=== PATIENT | female | born 1945 | race Caucasian/White ===

== ENCOUNTER → 2016-09-19 | Outpatient (CLI) | payer BC ==
[2016-09-19 12:50] LABS: ALT/SGPT 25 U/L (12-78); AST/SGOT 20 U/L (15-37); BLOOD UREA NITROGEN 19 mg/dl (7-18); BUN/CREATININE RATIO 20.3 (10-20); CARBON DIOXIDE 29 mmol/L (21-32); CHLORIDE 105 mmol/L (98-107); CREATININE 0.96 mg/dl (0.60-1.20); GLUCOSE 89 mg/dl (70-99); POTASSIUM 4.1 mmol/L (3.5-5.1); SODIUM 141 mmol/L (136-145)
[2016-09-19 12:54] LABS: ALB/GLOB RATIO 1.2 (0.9-2); ALKALINE PHOSPHATASE 63 U/L (45-117); CHOLESTEROL 208 mg/dl (0-200); CHOLESTEROL/HDL RATIO 2.2; HDL CHOLESTEROL 94 mg/dl; LDL CHOLESTEROL CALCULATED 98 mg/dl; TRIGLYCERIDES 82 mg/dl (0-150); VERY LOW DENSITY LIPOPROT CALC 16 mg/dl
== END | disposition home or self-care (01) ==
LOC: C.LABPVFM 07:32
PROVIDERS: ATTEND Family Medicine
DX: E78.5 Hyperlipidemia, unspecified (principal)

== ENCOUNTER → 2016-09-27 | Outpatient (CLI) | payer BC ==
[2016-09-27 17:54] LABS: MAGNESIUM 1.9 mg/dl (1.8-2.4)
--- NOTE | 2016-10-17 09:57 | CODING QUERY MEDICAL NECESSITY ---
SUPPORTING DIAGNOSIS NEEDED A supporting diagnosis is required for the test/procedure performed on this patient in order for us to be reimbursed by the patient's insurance. Please provide a supporting diagnosis for the following test/procedure listed below next to the test name along with your signature. *If there is no additional diagnosis for this patient that would support the following test/procedure please document that below next to the test/procedure. Test(s)/Procedure(s) that require a supporting diagnosis: DOS 09/27 * Vitamin B12 DIAGNOSIS: Provider Signature: Date: Thank you Rhonda Ferrara Health Information Management Once completed, please kindly fax back to [phone] For questions please call [phone]
== END | disposition home or self-care (01) ==
LOC: C.LABPVFM 11:30
PROVIDERS: ATTEND Family Medicine
DX: E55.9 Vitamin D deficiency, unspecified (principal); E78.5 Hyperlipidemia, unspecified; M79.606 Pain in leg, unspecified; M79.1 Myalgia; D64.9 Anemia, unspecified

== ENCOUNTER → 2016-12-11 | Outpatient (CLI) | payer BC ==
--- NOTE | 2016-12-11 17:08 | MAMMOGRAPHY REPORT ---
BILATERAL DIGITAL SCREENING MAMMOGRAM WITH CAD: 12/11/2016 CLINICAL HISTORY: Routine screening. Patient has no complaints. TECHNIQUE: Bilateral CC and MLO views were obtained. Current study was also evaluated with a Comput er Aided Detection (CAD) system. COMPARISON: Comparison is made to exams dated: 12/06/2015 mammogram, 12/02/2014 mammogram, 10/25/2013 mammogram, 10/19/2012 mammogram, 10/08/2010 mammogram, and 09/11/2009 mammogram - [facility]. BREAST COMPOSITION: There are scattered areas of fibroglandular density in both breasts. FINDINGS: The parenchymal pattern is unchanged. No developing mass, architectural distortion or clu ster of suspicious microcalcifications is seen in either breast. IMPRESSION: ACR BI-RADS CATEGORY 2: BENIGN There is no mammographic evidence of malignancy. A 1 year screening mammogram is recommended. The p atient will receive written notification of the results. Approximately 10% of breast cancers are not detected with mammography. A negative mammographic repor t should not delay biopsy if a clinically suggestive mass is present. Emily Lockwood M.D. ay/:12/11/2016 15:54:29 Sap Technical Architect: Krysta Simmons, [facility] letter sent: Normal 1/2 BI-RADS Code: ACR BI-RADS Category 2: Benign
== END | disposition home or self-care (01) ==
LOC: C.MAMM 14:45
PROVIDERS: ATTEND Family Medicine
DX: Z12.31 Encounter for screening mammogram for malignant neoplasm of breast (principal)

== ENCOUNTER → 2017-01-24 | Outpatient (CLI) | payer BC ==
--- NOTE | 2017-01-24 12:31 | DIAGNOSTIC IMAGING REPORT ---
CERVICAL SPINE 5 VIEWS CLINICAL HISTORY: Cervicalgia. Chronic neck pain. FINDINGS: AP, lateral, bilateral oblique, and odontoid views of the cervical spine are compared to the study dated 01/13/2014. The skeletal structures are osteopenic. There is no radiographic evidence of fracture or malalignment. The odontoid process and lateral masses are intact on the open-mouth view. The spinolaminar line is preserved. Vertebral body height is maintained throughout the cervical spine. There is straightening of the cervical lordosis with reversal centered at C4-C5. There is minimal anterolisthesis at C4-C5. Alignment is otherwise maintained. Small anterior osteophytes are seen at C5-C6. The spinous processes appear intact. Neural foraminal stenosis is suggested on the right at C3-C4 through C5-C6. No significant left-sided neural foraminal narrowing is seen. There is moderate degenerative disc space narrowing at C5-C6 with associated endplate sclerosis. Milder disc space narrowing is seen at C4-C5. Small posterior disc-osteophyte complexes seen at C5-C6 and C6-C7 may contribute to mild acquired compromise of the central canal. The prevertebral soft tissues are within normal limits. The imaged apical lung parenchyma appears clear. IMPRESSION: 1. No acute bony abnormality is identified in the cervical spine. 2. Osteopenia and spondylotic change as above. This is similar in appearance to the 01/13/2014 examination. Dictated: 01/24/2017 11:15 AM Transcribed: 01/24/2017 12:31 PM [email or web address] Electronically signed by: Melo Gonzalez M.D. 01/24/2017 12:34 PM Dictated Date/Time: 01/24/2017 11:15 AM
== END | disposition home or self-care (01) ==
LOC: C.RADPV 10:31
PROVIDERS: ATTEND Family Medicine
DX: M54.2 Cervicalgia (principal); M85.88 Other specified disorders of bone density and structure, other site; M47.812 Spondylosis without myelopathy or radiculopathy, cervical region

== ENCOUNTER → 2017-05-28 | Outpatient (CLI) | payer BC ==
[2017-05-28 12:26] LABS: BASO % 0.7 %; BASO ABS # 0.03 K/uL (0-0.2); COMPLETE YES; EOS % 1.8 %; HEMATOCRIT 39.5 % (37-47); LYMPH % 43.1 %; LYMPH ABS # 1.88 K/uL (1.2-3.4); MEAN CORPUSCULAR HEMOGLOBIN 29.7 pg (25-34); MEAN CORPUSCULAR HGB CONC 32.7 g/dl (32-36); MEAN PLATELET VOLUME 10.6 fL (7.4-10.4); MONO % 7.8 %; NEUT % 46.6 %; PLATELET COUNT 216 K/uL (130-400); RED BLOOD COUNT 4.34 M/uL (4.2-5.4); WHITE BLOOD COUNT 4.36 K/uL (4.8-10.8)
[2017-05-28 13:15] LABS: LYME DISEASE AB IGG NEG (NEG); LYME DISEASE AB IGM NEG (NEG)
== END | disposition home or self-care (01) ==
LOC: C.LABPVFM 08:42
PROVIDERS: ATTEND Family Medicine Adult Medicine
DX: R53.83 Other fatigue (principal); M25.519 Pain in unspecified shoulder

== ENCOUNTER → 2017-05-30 | Outpatient (CLI) | payer BC | END | disposition home or self-care (01) | LOC: C.LABPVFM 14:01 | PROVIDERS: ATTEND Family Medicine Adult Medicine | DX: K59.00 Constipation, unspecified (principal) ==

== ENCOUNTER → 2017-07-08 | Outpatient (CLI) | payer BC ==
--- NOTE | 2017-07-08 14:45 | DIAGNOSTIC IMAGING REPORT ---
VIDEO SWALLOW HISTORY: R13.10 Dysphagiapt coughs with every meal.[id number] TECHNIQUE: Video fluoroscopic evaluation of swallowing was performed in the AP and lateral projections by the speech pathology staff. The patient is fed nectar-thick and thin liquid barium, a barium coated wafer, and barium pudding. FLUOROSCOPY TIME: 1.7 minutes. NUMBER OF FLUOROSCOPY IMAGES: 0 COMPARISON STUDY: None. FINDINGS: There is normal hyoid excursion and epiglottic deflection. No significant penetration or aspiration identified. Swallowing function is within normal limits. IMPRESSION: 1. No aspiration identified. 2. Please see the speech pathologist report for detailed findings and recommendations. Electronically signed by: Stefan Bo M.D. 07/08/2017 2:43 PM Dictated Date/Time: 07/08/2017 12:21 PM
--- NOTE | 2017-07-09 13:24 | SWALLOWING EVALUATION ---
HISTORY: This 72 year old woman was referred for a video swallow study at [facility] in order to rule out aspiration and identify the safest consistencies for optimal oral intake. Patient is c/o globus sensation and episodes of coughing with meals. PMH is significant for a small hiatal hernia and is eating treated for reflux. Current diet is described as regular. PROCEDURE: The patient was seen in the Radiology Department of [facility] for the [facility]. Cursory examination of the oral cavity revealed upper and lower plates. Movement of the articulators was wnl. Speech was clear. The patient was seated on a stool and was viewed in both the Anterior-Posterior (A-P) and Lateral planes. Volitional phonation exercises completed in the A-P plane revealed bilateral vocal fold movement and vocal intensity within functional limits. The patient was seated on a stool and was viewed in both the Anterior-Posterior (A-P) and Lateral planes. Volitional phonation exercises completed in the A-P plane revealed bilateral vocal fold movement and vocal intensity within functional limits. In the lateral plane, the patient was given the following boluses: 1 tsp. thin liquid barium x 2, single swallow thin liquid barium self-presented from a cup, sequential swallows of thin liquid barium self-presented from a straw, 1 tsp. nectar-thick liquid barium, single swallow nectar-thick liquid barium self-presented from a cup, 1 tsp. barium pudding, and 1 club cracker coated in barium pudding. The patient was then repositioned into the A-P plane and given the following boluses: 1 tsp. nectar thick barium and 1 tsp. barium pudding. RESULTS: Oral Stage: Lip closure was adequate. The patient was able to maintain a cohesive liquid bolus in the oral cavity without any escape during the liquid bolus hold task. Mastication was timely and efficient. Lingual motion for bolus transport was slow. There was retention lining the tongue and palate after the initial swallow. The initiation of the pharyngeal swallow occurred when the bolus head reached the pyriforms. Pharyngeal Stage: Soft palate elevation was complete. Laryngeal elevation revealed partial superior movement of the thyroid cartilage and partial approximation of the arytenoids to the epiglottic base. Anterior hyoid excursion and epiglottic deflection were partially reduced. Laryngeal vestibular closure was in-complete, with a trace column of contrast being located in the vestibule at the height of the swallow. The pharyngeal stripping wave was present yet complete. Pharyngeal contraction was complete. There was complete distention and duration of the opening to the pharyngoesophageal segment (PES). Tongue base retraction was reduced, with a narrow column of contrast located between the tongue base and pharyngeal wall during the swallow. There was mild retention located in the valleculae after the swallow. There was no evidence of aspiration for this study. Minimal laryngeal penetration evidenced along with mild vallecular retention cleared with a second effortful swallow. No other difficulty identified. Esophageal stage: There was distal esophageal retention. This is suggestive of esophageal dysmotility. Patient also has a hiatal hernia. SUMMARY/RECOMMENDATIONS: This patient presents with mild avni-pharyngeal swallowing mechanics. She presents with s/s of esophageal dysphagia. The following is recommended: 1. Regular diet, "slippery" and thin liquids. 2. Aspiration and GERD precautions. No Straws. Fully upright for meals and for 30 minutes after meals. Do not lay flat. 3. Safe swallow strategies: Avoid foods that are dry, thick, pasty, or doughy. Use of condiments such as gravy to assist with making foods moist. Rest breaks while eating. Alternate solids and liquids. Small frequent meals. 4. Follow up with PCP as needed. Consider a GI consult with any worsening of esophageal dysphagia. A summary of the results and recommendations was discussed with the patient immediately following the study with verbal understanding. The patient was also provided with verbal education regarding a "slippery" diet for improved comfort while eating (avoiding foods that are dry, thick, pasty, or doughy) as needed. She verbalized understanding. Thank you for referral of this patient. Please contact me at if any additional information is needed.
== END | disposition home or self-care (01) ==
LOC: C.RAD 11:16
PROVIDERS: ATTEND Family Medicine
DX: R13.10 Dysphagia, unspecified (principal)

== ENCOUNTER → 2017-10-10 | Outpatient (CLI) | payer BC ==
[2017-10-10 12:23] LABS: HEMATOCRIT 40.4 % (37-47); HEMOGLOBIN 13.6 g/dL (12.0-16.0); MEAN CELL VOLUME 89.6 fL (80-100); MEAN CORPUSCULAR HEMOGLOBIN 30.2 pg (25-34); MEAN CORPUSCULAR HGB CONC 33.7 g/dl (32-36); MEAN PLATELET VOLUME 10.7 fL (7.4-10.4); PLATELET COUNT 207 K/uL (130-400); RED CELL DISTRIBUTION WIDTH CV 12.9 % (11.5-14.5); RED CELL DISTRIBUTION WIDTH SD 42.1 fL (36.4-46.3); WHITE BLOOD COUNT 4.81 K/uL (4.8-10.8)
[2017-10-10 12:45] LABS: ALBUMIN 4.2 gm/dl (3.4-5.0); ALT/SGPT 26 U/L (12-78); BLOOD UREA NITROGEN 17 mg/dl (7-18); CALCIUM 9.5 mg/dl (8.5-10.1); CARBON DIOXIDE 28 mmol/L (21-32); CHOLESTEROL 204 mg/dl (0-200); CREATININE 1.03 mg/dl (0.60-1.20); GLUCOSE 84 mg/dl (70-99); POTASSIUM 4.2 mmol/L (3.5-5.1); SODIUM 138 mmol/L (136-145)
[2017-10-10 12:47] LABS: HEMOGLOBIN A1C 5.4 % (4.5-5.6)
[2017-10-10 12:48] LABS: ALKALINE PHOSPHATASE 62 U/L (45-117); AST/SGOT 24 U/L (15-37); LDL CHOLESTEROL CALCULATED 107 mg/dl; TOTAL PROTEIN 7.7 gm/dl (6.4-8.2)
== END | disposition home or self-care (01) ==
LOC: C.LABPVFM 07:56
PROVIDERS: ATTEND Family Medicine
DX: Z86.39 Personal history of other endocrine, nutritional and metabolic disease (principal)

== ENCOUNTER → 2017-11-11 | Outpatient (CLI) | payer BC | END | disposition home or self-care (01) | LOC: C.MAMM 12:51 | PROVIDERS: ATTEND Family Medicine | DX: M85.89 Other specified disorders of bone density and structure, multiple sites (principal) ==

== ENCOUNTER → 2017-12-17 | Outpatient (CLI) | payer BC ==
--- NOTE | 2017-12-17 15:47 | MAMMOGRAPHY REPORT ---
BILATERAL DIGITAL SCREENING MAMMOGRAM TOMOSYNTHESIS WITH CAD: 12/17/2017 CLINICAL HISTORY: Routine screening. Patient has no complaints. TECHNIQUE: Breast tomosynthesis in addition to standard 2D mammography was performed. Current study was also evaluated with a Computer Aided Detection (CAD) system. COMPARISON: Comparison is made to exams dated: 12/11/2016 mammogram, 12/06/2015 mammogram, 12/02/2014 m ammogram, 10/25/2013 mammogram, 10/19/2012 mammogram, and 10/08/2010 mammogram - [facility]ter. BREAST COMPOSITION: There are scattered areas of fibroglandular density in both breasts. FINDINGS: The parenchymal pattern is unchanged. No developing mass, architectural distortion or clus ter of suspicious microcalcifications is seen in either breast. IMPRESSION: ACR BI-RADS CATEGORY 2: BENIGN There is no mammographic evidence of malignancy. A 1 year screening mammogram is recommended. The pa tient will receive written notification of the results. Approximately 10% of breast cancers are not detected with mammography. A negative mammographic report should not delay biopsy if a clinically suggestive mass is present. Emily Lockwood M.D. ay/:12/17/2017 14:00:13 Clinical Review Nurse: Krysta Simmons, [facility] letter sent: Normal 1/2 BI-RADS Code: ACR BI-RADS Category 2: Benign
== END | disposition home or self-care (01) ==
LOC: C.MAMM 13:09
PROVIDERS: ATTEND Family Medicine
DX: Z12.31 Encounter for screening mammogram for malignant neoplasm of breast (principal)

== ENCOUNTER → 2018-04-13 | Outpatient (CLI) | payer BC ==
[2018-04-13 12:26] LABS: HEMATOCRIT 40.7 % (37-47); HEMOGLOBIN 13.4 g/dL (12.0-16.0); MEAN CELL VOLUME 91.3 fL (80-100); MEAN CORPUSCULAR HGB CONC 32.9 g/dl (32-36); MEAN PLATELET VOLUME 10.9 fL (7.4-10.4); PLATELET COUNT 178 K/uL (130-400); RED CELL DISTRIBUTION WIDTH CV 12.9 % (11.5-14.5); RED CELL DISTRIBUTION WIDTH SD 42.8 fL (36.4-46.3); WHITE BLOOD COUNT 4.11 K/uL (4.8-10.8)
[2018-04-13 13:09] LABS: ALBUMIN 3.6 gm/dl (3.4-5.0); ALKALINE PHOSPHATASE 58 U/L (45-117); ALT/SGPT 28 U/L (12-78); AST/SGOT 23 U/L (15-37); BLOOD UREA NITROGEN 17 mg/dl (7-18); CALCIUM 8.5 mg/dl (8.5-10.1); CARBON DIOXIDE 27 mmol/L (21-32); CHOLESTEROL 192 mg/dl (0-200); CREATININE 0.94 mg/dl (0.60-1.20); GLUCOSE 88 mg/dl (70-99); LDL CHOLESTEROL CALCULATED 92 mg/dl; POTASSIUM 4.2 mmol/L (3.5-5.1); SODIUM 139 mmol/L (136-145); TOTAL PROTEIN 7.1 gm/dl (6.4-8.2)
[2018-04-13 13:27] LABS: HEMOGLOBIN A1C 5.5 % (4.5-5.6)
== END | disposition home or self-care (01) ==
LOC: C.LABPVFM 07:47
PROVIDERS: ATTEND Family Medicine
DX: G25.81 Restless legs syndrome (principal)

== ENCOUNTER 2023-07-04 06:42 | Observation (INO) ==
--- NOTE | 2023-05-23 15:10 | PAT Medication Instructions ---
Medication Instructions Date of Service May 23, 2023 Home Medications Medication Instructions Recorded coenzyme Q10 10 mg capsule 10 mg PO DAILY #30 caps 04/15/19 clonazepam 0.5 mg tablet 0.25 - 0.5 mg PO HS PRN sleep #20 03/08/22 tabs cyanocobalamin (vitamin B-12) 2,500 mcg PO DAILY #30 tabs 03/18/22 2,500 mcg tablet gabapentin 300 mg capsule 300 mg PO .COMPLEX #450 caps 12/26/22 bupropion HCl 150 mg tablet,12 hr 150 mg PO BID #60 ea 04/29/23 sustained-release (Wellbutrin SR) celecoxib 200 mg capsule (Celebrex) 200 mg PO BID PRN pain #180 caps 05/13/23 multivitamin (Daily Multi-Vitamin tablet) 1 tab PO DAILY biotin 10 mg tablet 10 mg PO DAILY coenzyme Q10 10 mg capsule 10 mg PO DAILY omega-3 fatty acids 1,000 mg capsule (Fish Oil Concentrate) 1,000 mg PO DAILY calcium carbonate 600 mg calcium (1,500 mg) tablet (Calcium) 600 mg PO DAILY clonazepam 0.5 mg tablet 0.25 - 0.5 mg PO HS PRN cyanocobalamin (vitamin B-12) 2,500 mcg tablet 2,500 mcg PO DAILY gabapentin 300 mg capsule 300 mg PO .COMPLEX bupropion HCl 150 mg tablet,12 hr sustained-release (Wellbutrin SR) 150 mg PO BID celecoxib 200 mg capsule (Celebrex) 200 mg PO BID PRN duloxetine 60 mg capsule,delayed release 60 mg PO HS omeprazole 20 mg capsule,delayed release 20 mg PO HS raloxifene 60 mg tablet 60 mg PO QAM simvastatin 40 mg tablet 40 mg PO HS Continue as directed gabapentin 300 mg capsule 300 mg PO .COMPLEX ASK your surgeon for instructions celecoxib 200 mg capsule (Celebrex) 200 mg PO BID PRN ASK your prescriber and surgeon raloxifene 60 mg tablet 60 mg PO QAM STOP taking 2 weeks before surgery (or as soon as possible if surgery is within 2 weeks) biotin 10 mg tablet 10 mg PO DAILY coenzyme Q10 10 mg capsule 10 mg PO DAILY omega-3 fatty acids 1,000 mg capsule (Fish Oil Concentrate) 1,000 mg PO DAILY DO NOT take the morning of surgery multivitamin (Daily Multi-Vitamin tablet) 1 tab PO DAILY calcium carbonate 600 mg calcium (1,500 mg) tablet (Calcium) 600 mg PO DAILY cyanocobalamin (vitamin B-12) 2,500 mcg tablet 2,500 mcg PO DAILY Take morning of surgery With a small sip of water, OTHERWISE NOTHING TO EAT OR DRINK AFTER MIDNIGHT: bupropion HCl 150 mg tablet,12 hr sustained-release (Wellbutrin SR) 150 mg PO BID Take evening before surgery clonazepam 0.5 mg tablet 0.25 - 0.5 mg PO HS PRN(if needed) bupropion HCl 150 mg tablet,12 hr sustained-release (Wellbutrin SR) 150 mg PO BID duloxetine 60 mg capsule,delayed release 60 mg PO HS omeprazole 20 mg capsule,delayed release 20 mg PO HS simvastatin 40 mg tablet 40 mg PO HS Other Notes If you have any questions please call us at [phone] or [phone] or [phone] or [phone]
--- NOTE | 2023-05-29 12:06 | Anesthesiology Consultation ---
Date of Service May 29, 2023 Assessment & Plan (1) Encounter for pre-operative examination: Chart Review Chart Review: Acceptable Risk for Surgery (pending routine PCP and neuro appts ) and Patient NOT seen in Pre Admission Testing - Awaiting routine PCP appt ([place]) 06/30/23 - Awaiting routine neuro appt 05/29/23 ([place]) - Pt is NOT an OPJ candidate due to age Per PAT appt on 05/29/23, no recent illness/disease exposures, illness related symptoms, or recent illness/disease positive tests. Will leave to surgeon's discretion if preop Covid testing needed Teaching & Discussion Pre-Anesthesia Teaching/Discussion Notes: Instructed NPO after midnight before surgery,except medications with 15 cc of water. Medication instructions provided according to the [facility] guidelines. History Surgery Operation Date: 07/04/23 07:00 Proposed Procedures p Right Total Knee Arthroplasty - Willie Ray MD Height/Weight Height: 5 ft 1 in Weight: 57.9 kg Allergies Allergy/AdvReac Type Severity Reaction Status Date / Time No Known Allergies Allergy Verified 05/28/23 10:40 Medications Home Medications Medication Instructions Recorded Confirmed Last Taken multivitamin (Daily Multi-Vitamin 1 tab PO DAILY 03/05/19 05/28/23 Unknown tablet) biotin 10 mg tablet 10 mg PO DAILY 04/15/19 05/28/23 Unknown coenzyme Q10 10 mg capsule 10 mg PO DAILY #30 caps 04/15/19 05/28/23 Unknown omega-3 fatty acids 1,000 mg 1,000 mg PO DAILY 04/15/19 05/28/23 Unknown capsule (Fish Oil Concentrate) calcium carbonate 600 mg calcium 600 mg PO DAILY 01/11/21 05/28/23 Unknown (1,500 mg) tablet (Calcium) clonazepam 0.5 mg tablet 0.25 - 0.5 mg PO HS PRN sleep #20 03/08/22 05/28/23 Unknown tabs cyanocobalamin (vitamin B-12) 2,500 mcg PO DAILY #30 tabs 03/18/22 05/28/23 Unknown 2,500 mcg tablet gabapentin 300 mg capsule 300 mg PO .COMPLEX #450 caps 12/26/22 05/28/23 Unknown bupropion HCl 150 mg tablet,12 hr 150 mg PO BID #60 ea 04/29/23 05/28/23 Unknown sustained-release (Wellbutrin SR) celecoxib 200 mg capsule (Celebrex) 200 mg PO BID PRN pain #180 caps 05/13/23 05/28/23 Unknown duloxetine 60 mg capsule,delayed 60 mg PO HS 05/23/23 05/28/23 Unknown release omeprazole 20 mg capsule,delayed 20 mg PO HS 05/23/23 05/28/23 Unknown release raloxifene 60 mg tablet 60 mg PO QAM 05/23/23 05/28/23 Unknown simvastatin 40 mg tablet 40 mg PO HS #90 tabs 05/27/23 05/28/23 Unknown Past Medical History Medical History Chronic low back pain Chronic reflux esophagitis Well controlled and stable Depression Fibromyalgia Stable Hiatal hernia Hyperlipidemia Idiopathic polyneuropathy Follows with neuro Osteopenia Restless leg syndrome Sacroiliac joint pain Does get epidural injections Exercise / Class Metabolic Activity II 4-5 Yardwork/Stairs/Walk up hill (one flight of stairs - no chest pain or SOB ) Past Family History Family History Mother Congestive heart failure (CHF) Father Stroke Other Heart disease Denies family history of Ovarian cancer Prostate cancer Myocardial infarction Breast cancer Colorectal cancer Past Surgical History Surgical History History of esophagogastroduodenoscopy (EGD) Hx of colonoscopy Hx of tonsillectomy S/P excision of ganglion cyst Past Anesthesia History No Hx of Anesthesia Complications and No Family Hx of Anesthesia Complications History of PONV No Hx of PONV and No Hx of Motion Sickness Social History Smoking Status: Former smoker Do You Dip or Chew Tobacco: No Smoking End Date: quit age 32 Hx Alcohol Use: Yes Alcohol type: beer alcohol intake frequency: a few times a week Hx Substance Use: No substance use type: does not use Review of Systems Minimal snoring- no hx of sleep study Patient denies chest pain, shortness of breath, dyspnea on exertion, cough, wheezing, palpitations. No hx of seizures, stroke, MD. No hx of blood clots or blood transfusions Physical Exam Vital Signs VITALS BP 117/73 P 74 TEMP 97.7 SP02 97% RESP 16 Constitutional no acute distress ENMT Mouth: no TMJ clicking Thyromental Distance: > or= 3.5 Finger Breadths (3.5) Mallampati Class: I Top front teeth capped Crowns to molars Permanent bridges to side teeth Neck neck extension not limited Respiratory normal respiratory effort; no respiratory distress Auscultation: lungs clear to auscultation bilaterally; no wheezes Cardiovascular Rate/Rhythm: regular rate and regular rhythm Heart Sounds: no murmur Vessels: no carotid bruit Musculoskeletal Spine: no pain with cervical ROM Extremities: extremities normal to inspection Psychiatric Orientation: alert Lab Results Anesthesia Preop Results Results Anesthesia Widget: WBC 6.10 K/ul (4.8-10.8) 05/29/23 Hgb 12.0 g/dl (12.0-16.0) 05/29/23 Hct 35.2 % (37.0-47.0) L 05/29/23 Plt 214 K/uL (130-400) 05/29/23 Na 135 mmol/L (136-145) L 05/29/23 K 4.3 mmol/L (3.5-5.1) 05/29/23 Cl 104 mmol/L (98-107) 05/29/23 CO2 28 mmol/L (21-32) 05/29/23 BUN 19 mg/dl (6-23) 05/29/23 Creat 0.87 mg/dl (0.6-1.2) 05/29/23 Glucose Level 95 mg/dl (70-99(Fasting)) 05/29/23 PT 11.4 Seconds (9.0-12.0) 05/29/23 PTT 26.5 Seconds (21.0-31.0) 05/29/23 INR 1.0 (0.9-1.1) 05/29/23 Blood Type B Negative 05/29/23 Antibody Screen NEGATIVE 05/29/23 Testing Electrocardiogram Date: 05/29/23 Findings: + NSR @ (71bpm ) Normal EKG per cardio Chest X-Ray Date: 05/29/23 Findings: + NAD
--- NOTE | 2023-06-27 13:33 | History & Physical Report ---
Date of Service June 27, 2023 Assessment & Plan (1) Right knee DJD: 78-year-old female with advanced right knee lateral compartment DJD. She has failed conservative measures would like to have her right knee replaced. Plan: We will plan taken to the operating right total knee replacement for the risks Mente this procedure explained the patient include but not limited to DVT PE infection neurological injury vascular bleeding palm pain limb range of motion sepsis fairly of symptoms incomplete relief of symptoms need for further surgery in future exceptor. The patient understands and desires to proceed. Informed consent is obtained. As far as discharge plan she is planned to be discharged to home. Her , patient of mine from hip replacements, will assist in her care. History of Present Illness Chief Complaint: . Persistent right knee pain and discomfort. Primary Care Provider: Alem Gamboa MD . Patient is a 78-year-old female who now presents for surgical treatment of her right knee. She has a several year history of increasing right knee pain discomfort is gradually gotten worse over the past year. She seen Dr. Brooks as well as my physician certified medical assistant Alban and had extensive conservative treatment mostly including steroid shots and eventually PRP injection. The last shots have not helped at all. Describes global and lateral knee pain. Increased with weightbearing. No groin pain. She now like to have her knee fixed. Allergies Allergy/AdvReac Type Severity Reaction Status Date / Time No Known Allergies Allergy Verified 06/18/23 13:14 Home Medications Medication Instructions Recorded Confirmed Type multivitamin (Daily Multi-Vitamin 1 tab PO DAILY 03/05/19 06/18/23 History tablet) biotin 10 mg tablet 10 mg PO DAILY 04/15/19 06/18/23 History coenzyme Q10 10 mg capsule 10 mg PO DAILY #30 caps 04/15/19 06/18/23 Rx omega-3 fatty acids 1,000 mg 1,000 mg PO DAILY 04/15/19 06/18/23 History capsule (Fish Oil Concentrate) calcium carbonate 600 mg calcium 600 mg PO DAILY 01/11/21 06/18/23 History (1,500 mg) tablet (Calcium) clonazepam 0.5 mg tablet 0.25 - 0.5 mg (0.5 - 1 x 0.5 mg) 03/08/22 06/18/23 Rx PO HS PRN sleep #20 tabs cyanocobalamin (vitamin B-12) 2,500 mcg PO DAILY #30 tabs 03/18/22 06/18/23 Rx 2,500 mcg tablet bupropion HCl 150 mg tablet,12 hr 150 mg PO BID #60 ea 04/29/23 06/18/23 Rx sustained-release (Wellbutrin SR) celecoxib 200 mg capsule (Celebrex) 200 mg PO BID PRN pain #180 caps 05/13/23 06/18/23 Rx omeprazole 20 mg capsule,delayed 20 mg PO HS 05/23/23 05/28/23 History release raloxifene 60 mg tablet 60 mg PO QAM 05/23/23 06/18/23 History simvastatin 40 mg tablet 40 mg PO HS #90 tabs 05/27/23 06/18/23 Rx duloxetine 60 mg capsule,delayed 60 mg PO HS #30 caps 05/29/23 06/18/23 Rx release gabapentin 300 mg capsule 300 mg PO .COMPLEX #450 caps 05/29/23 06/18/23 Rx doxycycline monohydrate 100 mg 100 mg PO BID #2 caps 06/19/23 Rx capsule Past Med/Surg History Medical History Tick bite of back Chronic low back pain Sacroiliac joint pain Does get epidural injections Idiopathic polyneuropathy Follows with neuro Fibromyalgia Stable Restless leg syndrome Osteopenia Hyperlipidemia Hiatal hernia Depression Chronic reflux esophagitis Well controlled and stable Surgical History History of esophagogastroduodenoscopy (EGD) Hx of colonoscopy Hx of tonsillectomy S/P excision of ganglion cyst Family History Mother Congestive heart failure (CHF) Father Stroke Other Heart disease Denies family history of Ovarian cancer Prostate cancer Myocardial infarction Breast cancer Colorectal cancer Social History Smoking Status: Former smoker Tobacco Type: Cigarettes Second Hand Exposure: Yes (hx as child); Do You Dip or Chew Tobacco: No; Hx Alcohol Use: Yes Alcohol type: beer Alcohol Intake Frequency Comment: 3-4 a week Hx Substance Use: No Preferred Language: [place]ian Communication Ability: Effective Patient Support Specialist Required: No Beliefs That Will Affect Care: None marital status: Current Living Situation: Spouse current occupational status: retired How many Children do You have: 2 Feels Safe at Home: Yes Childhood Exposure to Second-Hand Smoke: Yes Diet: regular caffeine: Yes (coffe and tea) Dental Care, Regularly: Yes Physical Activity Frequency: Daily Seatbelt Use: always Sunscreen Use: Yes Assistive Devices: Glasses and Hearing Aid - Bilateral Review of Systems All systems reviewed & are unremarkable except as noted in HPI & below. Physical Exam . Physical examination reveals a pleasant thin somewhat frail elderly female. Examination of the right knee reveals patient ambulates independently. She is got slight valgus alignment to her knee. Minimal knee effusion. She is tender over the lateral joint line. She can dorsiflex and plantarflex her foot appropriately. There is no gross instability. She is neurologically intact. No particular pain with hip motion. Constitutional WD/WN, vitals as above Neck trachea midline, no thyromegaly Respiratory normal respiratory effort, lungs clear to auscultation Cardiovascular RRR, no murmur, no edema Gastrointestinal (Abdomen) normal bowel sounds, soft, nontender, no hepatosplenomegaly Results & Data Results & Data Laboratory Results . Diagnostic Findings . X-rays of the right knee were reviewed. Shows advanced lateral compartment DJD. She has complete loss of lateral joint space on the 40 degree flexion films. The rest knee looks pretty good. PG Care Time/CCT Total # of Minutes Spent Total Time Spent with Patient: Total time spent is greater than 50% in coordination of care (as documented) at patient's floor/unit and/or counseling patient: Coding Level of Care Code None Diagnoses Right knee DJD M17.11
[~2023-07-04 06:42] MED LIST: ACETAMINOPHEN 500 MG TAB PO SCH; BUPIVACAINE 0.5 % 5 MG/1 ML PF 10ML VIAL ONE; BUPIVACAINE LIPOSOME/PF 266 MG, BUPIVACAINE/EPINEPHRINE 50 ML, SODIUM CHLORIDE 0.9% PF ... INFIL SCH; CeleBREX 200 MG CAP PO SCH; FAMOTIDINE 20 MG TAB PO SCH; LR 500ML BOLUS, THEN 15ML/HR IV SCH; LR 60ML/HR IV SCH; METOCLOPRAMIDE HCL 10 MG TABLET PO SCH; ROPIVACAINE 0.5% 5 MG/ML 30 ML VIAL ONE; TRANEXAMIC ACID 1,000 MG **IV Intra-op IV SCH; ceFAZolin 2000MG 2,000 MG/15 ML SYR IV SCH; dexAMETHasone**PF** 10 MG/ML VIAL IV SCH
--- NOTE | 2023-07-04 06:50 | History & Physical Bridge Note ---
Date of Service July 04, 2023 History & Physical Bridge Note I have examined the patient, reviewed the History & Physical and in the interval since the performance of the History & Physical I have noted the following changes of clinical significance: no changes noted
[2023-07-04] MEDS ORDERED: fentaNYL citrate PF 100 MCG/2 ML VIAL ONE (07:37)
[2023-07-04] MEDS ORDERED: MIDAZOLAM HCL 1 MG/ML 2ML VIAL ONE (07:37)
[2023-07-04] MEDS ORDERED: ePHEDrine sulfate 50 MG/ML AMP IV PRN (08:06)
[2023-07-04] MEDS ORDERED: ONDANSETRON INJ 2 MG/ML 2 ML VIAL IV PRN ×2 (08:06→12:15)
[2023-07-04] MEDS ORDERED: fentaNYL citrate PF 100 MCG/2 ML VIAL IV PRN (08:06)
[2023-07-04] MEDS ORDERED: ATROPINE SULFATE 0.1 MG/ML 10ML SYR IV PRN (08:06)
[2023-07-04] MEDS ORDERED: BUPIVACAINE LIPOSOME 1.3% 266 MG/20 ML VIAL ONE (08:53)
[2023-07-04] MEDS ORDERED: BUPIVACAINE/EPINEPHRINE 0.25% 1:200,000 30 ML VIAL ONE (08:53)
[2023-07-04] MEDS ORDERED: SODIUM CHLORIDE 0.9% PF 50 ML VIAL ONE (08:53)
[2023-07-04] MEDS ORDERED: KETOROLAC 30 MG/ML VIAL ONE (09:31)
[2023-07-04] MEDS ORDERED: PROPOFOL IV EMULSION 10 MG/ML 20 ML VIAL IV ONE (09:55)
[2023-07-04] MEDS ORDERED: LIDOCAINE 2% 2 ML VIAL/AMP(20MG/ML) INFIL ONE (09:55)
--- NOTE | 2023-07-04 11:01 | Operative Report ---
PG Post Operative Report Pre & Post Diagnosis Operation Date: 07/04/23 08:50 Pre-Op Diagnosis: Right Knee Advanced Degenerative Joint Disease Post-Op Diagnosis: Right Knee Advanced Degenerative Joint Disease I identified the patient and participated in the time-out.: Yes Procedure Operation Date: 07/04/23 08:50 Actual Procedures p Right Total Knee Arthroplasty(Right) - Willie Ray MD Surgeon Willie Ray MD Table And Desk Finisher Alban Devries PA-C Estimated Blood Loss 50 Findings Consistent with Post-Op Diagnosis Operative findings revealed advanced right knee lateral compartment DJD. She did have full-thickness cartilage loss and portions of the lateral femoral condyle and lateral tibial plateau. She had some mild wear of the patellofemoral joint. The medial compartment is pretty well spared. She has slight valgus deformity to her knee. Small knee joint effusion. Specimens Right knee sent for pathology Anesthesia Type Spinal MAC Complications none Disposition Accompanied Patient To Recovery: No Indications Patient is a 78-year-old female is had a several year history of gradual increasing right knee pain discomfort. She failed conservative measures. X- rays revealed fairly advanced lateral compartment DJD. She elected proceed with surgical treatment. Description of Procedure Operative implants consist of: 1 Biomet Vanguard size 60 right posterior stabilized femoral component. 2 Biomet size 67 tibial tray. 3. 10 mm post stabilized polyethylene insert. 4. 28 x 8 all poly patella. The patient was taken to the operating, identified, placed on the operating table supine position. All contractors were appropriately padded. IV antibiotics tried by anesthesia team. A spinal anesthetic and abductor canal block had been divided holding area. Delgadillo catheter was placed in sterile fashion. Right Tetrick was then placed in the right lower extremities then prepped and draped in usual sterile fashion. The right leg was elevated exsanguinated with use of an Esmarch and the tourniquet was placed at 300 mmHg. An anterior approach of the right knee was then performed through a longitudinal incision centered over the patella. Sharp dissection was carried through subcutaneous tissue down the extensor mechanism. A medial parapatellar arthrotomy incision was made. Some subperiosteal dissection was carried out medially. The fat pad was resected from Neath patella tendon. Lateral patellofemoral ligament was released. Patella subluxated laterally knee was flexed. The osteophytes taken on distal femur. The ACL and PCL were then released from the distal femur and the tibia subluxated anteriorly. The external tibial alignment jig was then placed in the anterior face of the tibia and adjusted 12 mm medially. Proximal tibial cut was made to remove about 3 to 4 mm of bone from the medial side. The tibia sized to a size 67. Try to maximize her coverage to the soft bone structure. Attention drawn the femur. The distal femur was then with a sharp drill. Intramedullary canal was suction. Right 5 degree valgus cutting guide was placed. The distal femoral cutting block was pinned in place. Distal femoral cut was made to take an additional 3 mm of bone off distal femur. The femur was then sized to a size 60. The AP cutting block was pinned parallel to the epicondylar axis which was 4 degrees of external rotation. Anterior cut, anterior chamfer, posterior cut, posterior chamfer cuts were made. The box cutting guide was placed in a just slight lateral and the box cut was made. The knee was flexed. The remnants of the medial and lateral menisci were excised with the osteophytes taken off the posterior aspect the femur. A trial femoral component was placed through the tibial tray was pinned in maximum external rotation and the drill and stem punch used to create defect in proximal tibia for the tibial tray. Knee was then trialed and the 10 mm insert fit most appropriately. Attention drawn the patella. The patella was cleaned of all soft tissue. Patella thickness measured 20 mm in thickness was cut down to 12. Sized to a size 28 patella. The lug holes were drilled for the 28 patella. Lateral osteophytes removed. Patella button was placed. Knee was taken through range of motion patella tracked nicely with no thumbs test. Attention drawn to placing permanent components. All trial components were removed. Bone plug was placed in the distal femur limit blood loss. A double batch Palacos G cement was mixed. Biomet Vanguard size 60 right posterior stabilized femoral component, a size 67 tibial tray, 10 mm pro stabilized polyethylene insert, and a 28 x 8 all poly patella then cemented in place. The knee was brought out into full extension till cement hardened. Final cement check was then performed. The pericapsular tissues were injected with total 100 cc of combination of 20 cc of Exparel, 30 cc normal saline, 50 cc of quarter percent Marcaine with epinephrine. Patient did receive 1 g tranexamic acid. The tourniquet was let down for final tourniquet time of 51 minutes. Hemostasis assured use electrocautery. The extensor mechanism then closed with combination 1 PDS suture #1 Vicryl suture in a [id number] fashion. Extensor mechanism checked found to be intact and subcutaneous tissues then closed with 2 Dexon suture in buried interrupted fashion skin was closed skin micky. Leg was then cleaned and dried and a sterile dressing was Xeroform, 4 fours, sterile cast padding, Madhav bandage were applied. Patient then transferred to the recovery room in stable condition. Patient tolerated the procedure well and there were no complications. Alban Devries, my physician medical administrative assistant, was present for the entire procedure. His assistance was essential and required for appropriate patient positioning, prepping and draping, surgical exposure, performing the technical details of the operation, placement the implants, closure of the wound, and placement of the sterile bandage. I attest to the content of the Intraoperative Record and any orders documented therein. Any exceptions are noted below.
--- NOTE | 2023-07-04 11:16 | XRay Report ---
XR knee RT 1 or 2V routine CLINICAL HISTORY: Postoperative evaluation. COMPARISON: Knee radiographs September 05, 2022. FINDINGS: Alignment of the total right knee arthroplasty is anatomic. There is no periprosthetic fra cture or unexpected radiopaque foreign body. There are skin micky. IMPRESSION: Expected findings following total right knee arthroplasty. ACT 112: Negative or not required by law. Electronically signed by: Mark Moyer M.D. 07/04/2023 11:15 AM
--- NOTE | 2023-07-04 11:48 | Anesthesiology Progress Note ---
Date of Service July 04, 2023 Anesthesia Post Procedure Vital Signs Vital Signs: Temp Pulse Resp BP Pulse Ox O2 Del Method O2 Flow Rate 07/04/23 11:40 78 16 111/64 96 Room Air 07/04/23 11:30 74 14 118/55 L 100 Nasal Cannula 2 07/04/23 11:20 74 20 115/63 98 Nasal Cannula 2 07/04/23 11:10 76 18 112/58 L 100 Nasal Cannula 2 07/04/23 11:00 78 14 113/55 L 100 Nasal Cannula 2 07/04/23 10:49 36.4 C L 83 16 117/64 99 Nasal Cannula 2 07/04/23 06:52 36.6 C 72 20 142/60 H 99 Room Air Pain Intensity Right Knee: Pain Intensity: 0 Notes Mental Status: alert / awake / arousable Patient Amnestic to Procedure: Yes Nausea / Vomiting: adequately controlled Pain: adequately controlled Airway Patency, RR, SpO2: stable & adequate BP & HR: stable & adequate Hydration State: stable & adequate Neuraxial Anesthesia: was administered and sensory block is resolving Anesthetic Complications: no major complications apparent
[2023-07-04] MEDS ORDERED: ALUMINUM/MAGNESIUM SUSP 30 ML UDC PO PRN (12:15)
[2023-07-04] MEDS ORDERED: bisacodyL 10 MG SUPP PR PRN (12:15)
[2023-07-04] MEDS ORDERED: MAGNESIUM HYDROXIDE SUSP 30 ML UDC PO PRN (12:15)
[2023-07-04] MEDS ORDERED: NALOXONE HCL 0.4 MG/1 ML VIAL/CARP IV PRN (12:15)
[2023-07-04] MEDS ORDERED: HYDROmorphone INJ 0.5 MG/0.5 ML SYR IV PRN (12:15)
[2023-07-04] MEDS ORDERED: METOCLOPRAMIDE HCL INJ 5 MG/ML 2 ML VIAL IV PRN (12:15)
[2023-07-04] MEDS ORDERED: clonazePAM 0.25 MG TAB PO PRN (12:15)
[2023-07-04] MEDS: SODIUM CHLORIDE 0.9% 1,000 ML IV SCH ×2 (12:34→21:56)
[2023-07-04] MEDS: ACETAMINOPHEN 500 MG TAB PO SCH ×2 (13:37→20:15)
[2023-07-04] MEDS ORDERED: GABAPENTIN 300 MG CAP PO SCH (14:00)
[2023-07-04] MEDS: oxyCODONE HCL IR 5 MG TAB (IMMEDIATE RELEASE) PO PRN (14:53)
[2023-07-04] MEDS ORDERED: TRANEXAMIC ACID / 0.7% NACL 1,000 MG/100 ML BAG IV SCH (17:00)
[2023-07-04] MEDS: ASCORBIC ACID 500 MG TAB PO SCH (17:09)
[2023-07-04] MEDS: ceFAZolin 1000MG 1,000 MG/7.5 ML SYR IV SCH (17:09)
[2023-07-04] MEDS: KETOROLAC TROMETHAMINE 15 MG/ML VIAL IV SCH (20:14)
[2023-07-04] MEDS: buPROPion SR 150 MG TABCR PO SCH ×2 (20:15→20:24)
[2023-07-04] MEDS: DOCUSATE SODIUM 100 MG CAP PO SCH (20:16)
[2023-07-04] MEDS: ASPIRIN 81 MG ECTAB PO SCH (20:16)
[2023-07-04] MEDS: GABAPENTIN 300 MG CAP PO SCH (20:17)
[2023-07-04] MEDS ORDERED: SIMVASTATIN 40 MG TAB PO SCH (21:00)
[2023-07-04] MEDS ORDERED: NON-FORMULARY MEDICATION (Doxycycline Monohydrate 100 mg capsule) PO SCH (21:00)
[2023-07-04] MEDS ORDERED: DULoxetine HCL 60 MG CAP PO SCH (21:00)
[2023-07-04] MEDS ORDERED: SENNA 8.6 MG TAB PO SCH ×2 (21:00)
[2023-07-04] MEDS ORDERED: PANTOprazole 40 MG TAB PO SCH (21:00)
[2023-07-05] MEDS: ceFAZolin 1000MG 1,000 MG/7.5 ML SYR IV SCH (01:33)
[2023-07-05] MEDS: KETOROLAC TROMETHAMINE 15 MG/ML VIAL IV SCH ×2 (01:35→08:54)
--- NOTE | 2023-07-05 07:31 | Surgery Progress Note ---
Date of Service July 05, 2023 Assessment & Plan (1) Status post right knee replacement: Plan: 78-year-old female postop day 1 from right knee replacement doing pretty well. She is pretty happy things have come along and doing much better than she expected. Pain is controlled. She is neurologically intact. Plan: 1. DVT prophylaxis including thigh-high teds, SCDs, aspirin twice a day. 2. PT OT. Weight-bear as tolerated right total knee protocol. 3. Pain control. Doing okay with current pain regimen. 4. Disposition. Plan to discharge to home with some home health later today if does okay in therapy. Admission and Anticipated Discharge Date Admission Date: July 04, 2023 Subjective 78-year-old female postop day 1 from a right knee replacement. She is doing better than expected. Her pain has been controlled. Pretty good night. No chest pain or shortness of breath. Not feeling dizzy or lightheaded. Physical Exam Physical Exam: Physical examination was a pleasant middle-age female. She is lying in bed this morning looks comfortable. Examination of the right leg reveals the leg to be well aligned. She can dorsiflex and plantarflex her foot appropriately. She is neurologically intact. Neck: trachea midline, no thyromegaly Respiratory: normal respiratory effort, lungs clear to auscultation Cardiovascular: RRR, no murmur, no edema Gastrointestinal (Abdomen): normal bowel sounds, soft, nontender, no hepatosplenomegaly Results & Data Vital Signs (Past 12 Hours) Vital Signs Temp Pulse Resp BP Pulse Ox O2 Del Method 07/05/23 02:55 37.2 C 61 18 103/63 93 Room Air 07/04/23 23:00 36.5 C 63 18 94/59 L 95 Room Air Laboratory Results Lab results are pending. PG Care Time/CCT Total # of Minutes Spent Total Time Spent with Patient: Total time spent is greater than 50% in coordination of care (as documented) at patient's floor/unit and/or counseling patient: Coding Level of Care Code None Diagnoses Status post right knee replacement Z96.651
[2023-07-05 07:56] LABS: Calcium 8.7 mg/dl (8.6-10.3); Hematocrit (blood only) 27.6 % (37.0-47.0); Hemoglobin 9.3 g/dl (12.0-16.0); Mean Corpuscular Hemoglobin 31.2 pg (25.0-34.0); Mean Corpuscular Hgb Conc 33.7 g/dL (32.0-36.0); Mean Corpuscular Volume 92.6 fL (80.0-100.0); Platelet Count 181 K/uL (130-400); Potassium 4.2 mmol/L (3.5-5.1); RDW Coefficient of Variation 12.3 % (11.5-14.5); Red Blood Count 2.98 M/uL (4.20-5.40); White Blood Count 7.17 K/ul (4.8-10.8)
[2023-07-05] MEDS ORDERED: dexAMETHasone 10 MG in SYRINGE 0 ML IV SCH (08:00)
[2023-07-05 08:01] LABS: BUN Creatinine Ratio 14.6 (10-20); Creatinine Clr Calc Pharmacy 40.8 ml/min; Est GFR (African American) 66.6 ml/min; Est GFR (Non-African American) 57.4 ml/min
[2023-07-05] MEDS: ASCORBIC ACID 500 MG TAB PO SCH (08:52)
[2023-07-05] MEDS: ACETAMINOPHEN 500 MG TAB PO SCH (08:52)
[2023-07-05] MEDS: DOCUSATE SODIUM 100 MG CAP PO SCH (08:53)
[2023-07-05] MEDS: GABAPENTIN 300 MG CAP PO SCH (08:53)
[2023-07-05] MEDS: buPROPion SR 150 MG TABCR PO SCH (08:53)
[2023-07-05] MEDS: ASPIRIN 81 MG ECTAB PO SCH (08:53)
[2023-07-05] MEDS ORDERED: CALCIUM CARBONATE 1250MG TAB PO SCH (09:00)
[2023-07-05] MEDS ORDERED: RALOXIFENE HCL 60 MG TAB PO SCH (09:00)
[2023-07-05] MEDS ORDERED: MULTIVITAMIN TAB PO SCH (09:00)
[2023-07-05] MEDS ORDERED: NON-FORMULARY MEDICATION (Coenzyme Q10 10 mg capsule) PO SCH (09:00)
[2023-07-05] MEDS ORDERED: CYANOCOBALAMIN (B-12) 2,500 MCG TABLET PO SCH (09:00)
[2023-07-05] MEDS ORDERED: OMEGA-3 (PURIFIED FISH OIL) 1 GM CAP PO SCH (09:00)
[2023-07-05] MEDS: oxyCODONE HCL IR 5 MG TAB (IMMEDIATE RELEASE) PO PRN (11:01)
== END 2023-07-05 12:06 | disposition home health service (06) ==
LOC: 3E 06:42 → ASU 06:42